=== PATIENT | male | born 1980 | race African-American/Black ===

== ENCOUNTER 2020-01-02 10:45 | Emergency (ER) | payer SELFPAY ==
[~2020-01-02] VITALS: Ht 172.7 cm; Wt 83.9 kg
[2020-01-02 11:02] VITALS: BP 137/87
--- NOTE | 2020-01-02 11:02 | NUR ---
ED Nurse Note:pt. came with c/o headche and right knee pain after table fell on his head today, pt. is ambulatory with steady gait, VSS, A/Ox4 no dizziness reported
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
[2020-01-02] MEDS ORDERED: NORCO 5-325 TA1 EACH ORAL (13:52)
[2020-01-02] MEDS ORDERED: IBUPROFEN600 MG ORAL (13:52)
[2020-01-02 13:58] VITALS: BP 128/75
--- NOTE | 2020-01-02 13:58 | NUR ---
ER DISCHARGE NOTE: Patient is cleared to be discharged per ERMD, pt is aox4, on room air, with stable vital signs. pt was given dc and prescription instructions, pt was able to verbalize understanding, pt id band removed. pt is able to ambulate with crutches provided. pt took all belongings.
== END 2020-01-02 13:58 | disposition home or self-care (01) ==
LOC: EMR 11:35
DX: S82.044A Nondisplaced comminuted fracture of right patella, initial encounter for closed fracture (principal); S06.0X0A Concussion without loss of consciousness, initial encounter; S83.91XA Sprain of unspecified site of right knee, initial encounter; W19.XXXA Unspecified fall, initial encounter; Y92.9 Unspecified place or not applicable; F17.200 Nicotine dependence, unspecified, uncomplicated
CPT/HCPCS: 29505; 99283

== ENCOUNTER 2020-03-05 08:50 | Emergency (ER) | payer MEDICAID ==
[~2020-03-05] VITALS: Ht 177.8 cm; Wt 81.6 kg
[~2020-03-05 08:50] MED LIST: IBUPROFEN600 MG ORAL; NORCO 5-325 TA1 EACH ORAL
--- NOTE | 2020-03-05 08:59 | NUR ---
ED Nurse Note: Pt came from home c/o lower back left back pain. 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 pt denies head trauma. no physical abnormalities noted. pt states pain is 6/10 nonradiating "feels like a pulled muscle"
[2020-03-05 09:01] VITALS: BP 143/76
[2020-03-05] MEDS ORDERED: Ketorolac 60mg Inj IM ONE (09:15)
[2020-03-05] MEDS ORDERED: ROBAXIN-500MG ORAL (09:16)
--- NOTE | 2020-03-05 09:19 | Emergency Room Report ---
History of Present Illness General Chief Complaint: Back Injury Source: Patient Present Illness HPI Patient is a 40-year-old male presents after increased left-sided low back pain. He reports having increased pain after lifting a piano. Reports having sudden jolt downward and subsequently having increased pain to the left side of his back. Pain is worse with movement. Denies any other locations of pain. Denies any bowel or bladder dysfunction. Denies any leg weakness or numbness. Denies any prior medical history. Does not take any medications regularly. Allergies: Coded Allergies: No Known Allergies (Unverified , 01/02/20) COVID-19 Screening Contact w/high risk pt: No Recent Travel to affected area: No Experienced COVID-19 symptoms?: No Patient History Past Medical History: see triage record Reviewed Nursing Documentation: PMH: Agreed; PSxH: Agreed Nursing Documentation-PMH Past Medical History: No Stated History Review of Systems All Other Systems: negative except mentioned in HPI Physical Exam Vital Signs Date Time Temp Pulse Resp B/P (MAP) Pulse Ox O2 Delivery O2 Flow Rate FiO2 03/05/20 08:55 97.7 74 19 143/76 (98) 98 Room Air General Appearance: well appearing, no apparent distress, alert, GCS 15 Head: normocephalic, atraumatic ENT: hearing grossly normal, normal voice Neck: full range of motion, supple Respiratory: lungs clear, no respiratory distress, speaking full sentences Cardiovascular #1: normal peripheral pulses Gastrointestinal: normal inspection Musculoskeletal: no calf tenderness Neurologic: normal gait Psychiatric: mood/affect normal Skin: no rash Medical Decision Making Diagnostic Impression: Primary Impression: Low back pain ER Course Patient presented for low back pain. Differential diagnosis include was not limited to contusion, fracture, muscle strain among others. Patient has a benign exam and does not appear to require any imaging or laboratory testing at this time. Patient appears to have muscular low back pain likely muscle strain. Does not appear to require any x-ray imaging at this time. Patient appears to be stable for outpatient reevaluation. He was advised to have a recheck with his primary care physician if pain persist. He was advised to ice the area that was injured. He was given prescription for muscle relaxant. He is advised to return if he began having any bowel or bladder dysfunction or any other concerns. The patient is advised to follow up with primary care doctor in 1-2 days. Patient is advised to return if any worsening condition or if any changes in status that are concerning. This report is dictated with [employer] jet inspector software which may occasionally lead to discrepancies related to use of this software. Last Vital Signs Date Time Temp Pulse Resp B/P (MAP) Pulse Ox O2 Delivery O2 Flow Rate FiO2 03/05/20 09:01 97.7 74 19 143/76 98 Room Air Status: improved Disposition: HOME, SELF-CARE Condition: Stable Scripts Methocarbamol* (ROBAXIN-500*) 500 Mg Tablet 500 MG ORAL BID PRN for For Pain, #20 TAB 0 Refills Prov: Tai Styles MD 03/05/20 Patient Instructions: Back Pain, Adult Tai Styles MD March 05, 2020 09:19
[2020-03-05 09:44] VITALS: BP 137/79
--- NOTE | 2020-03-05 09:44 | NUR ---
ER DISCHARGE NOTE: Patient is cleared to be discharged per ERMD, pt is aox4, on room air, with stable vital signs. pt was given dc and prescription instructions, pt was able to verbalize understanding, pt id band removed. pt is able to ambulate with steady gait. pt took all belongings.
== END 2020-03-05 09:45 | disposition home or self-care (01) ==
LOC: EMR 09:06
DX: M54.5 Low back pain (principal)
CPT/HCPCS: 96372; Z7502; 99283